=== PATIENT | female | born 1960 | race Caucasian/White ===

== ENCOUNTER 2018-06-29 09:55 | Emergency (ER) | payer MEDICAID ==
[~2018-06-29] VITALS: Ht 157.5 cm; Wt 95.5 kg
[2018-06-29 11:13] LABS: BASOPHILS # (AUTO) 0.1 X10'3 (0-0.2); BASOPHILS % (AUTO) 0.9 % (0-1); EOSINOPHILS % (AUTO) 0 % (0-6); HEMATOCRIT 44.4 % (35.0-45.0); LYMPHOCYTES % (AUTO) 36.8 % (21-51); MEAN CORPUSCULAR HEMOGLOBIN 30.2 PG (27.0-31.0); MEAN CORPUSCULAR HGB CONC 33.8 g/dL (33.0-36.5); MEAN CORPUSCULAR VOLUME 89.2 FL (78-98); MEAN PLATELET VOLUME 8.6 FL (7.4-10.4); MONOCYTES # (AUTO) 0.5 X10'3 (0-0.9); MONOCYTES % (AUTO) 6.5 % (2-12); NEUTROPHILS # (AUTO) 4.6 X10'3 (1.8-7.7); NEUTROPHILS % (AUTO) 55.8 % (42-75); PLATELET COUNT 353 X10'3 (140-440); RED BLOOD COUNT 4.97 X10'6 (4.20-5.60); RED CELL DISTRIBUTION WIDTH 14.7 % (11.5-14.5); WHITE BLOOD COUNT 8.2 X10'3 (4.5-11.0)
[2018-06-29 11:26] LABS: ALANINE AMINOTRANSFERASE 17 U/L (12-78); ALBUMIN 3.8 G/DL (3.4-5.0); ALKALINE PHOSPHATASE 77 IU/L (46-116); ANION GAP 7 (8-16); ASPARTATE AMINO TRANSFERASE 15 U/L (10-37); BILIRUBIN,TOTAL 0.2 MG/DL (0.1-1.0); BLOOD UREA NITROGEN 22 MG/DL (7-18); BUN/CREATININE RATIO 28.6 (6.6-38.0); CALCIUM 9.7 MG/DL (8.5-10.1); CHLORIDE 105 MMOL/L (99-107); CREATININE 0.77 MG/DL (0.40-0.90); GLUCOSE 182 MG/DL (70-104); POTASSIUM 3.7 MMOL/L (3.5-5.1); SODIUM 142 MMOL/L (135-145); TOTAL CARBON DIOXIDE 29.7 MMOL/L (24-32); TOTAL PROTEIN 7.5 G/DL (6.4-8.2); eGFR 76 ML/MIN
[2018-06-29] MEDS ORDERED: AZIT-63 PO (12:07)
[2018-06-29] MEDS ORDERED: PRED20TA PO (12:07)
[2018-06-29 12:28] VITALS: BP 136/79
== END 2018-06-29 12:35 | disposition home or self-care (01) ==
LOC: ER 09:56
DX: J22 Unspecified acute lower respiratory infection (principal); J44.9 Chronic obstructive pulmonary disease, unspecified; F17.200 Nicotine dependence, unspecified, uncomplicated; Z88.6 Allergy status to analgesic agent
CPT/HCPCS: 36415; 71046; 80053; 83605; 85025; 87040; 99284

== ENCOUNTER 2024-10-26 10:25 | Outpatient (CLI) | payer MEDICARE, MEDICAID ==
[2024-10-26 11:45] VITALS: PULSE 87; RESP 16; O2SAT 92
--- NOTE | 2024-10-27 15:21 | PROCEDURE NOTE - Respiratory ---
Procedure Note-Respiratory Providers to CC Copies To 1: KATHARINA BATES MD Procedure Name: This is a spirometry study dated October 26, 2024. Spirometry measurements: Both the forced vital capacity and the FEV1 measurements show significant reduction. The FEV1 ratio is also reduced. All of the measured flow rates show substantial reduction. Bronchodilator was not administered as part of the study. Conclusion: This study documents severe abnormality. There is evidence for obstructive ventilatory defect in the severe category. These findings are consistent with the patient's diagnosis of smoking-related COPD. It is strongly recommended that the patient abstain from cigarette smoking. Continued use of bronchodilator medication is recommended. We have no previous studies for comparison. Close pulmonary follow-up is recommended. ROSIE BAPTISTE MD Oct 27, 2024 15:21
== END 2024-10-26 23:59 | disposition home or self-care (01) ==
LOC: RT 10:25
PROVIDERS: ATTEND Family Medicine
DX: J44.9 Chronic obstructive pulmonary disease, unspecified (principal); F17.210 Nicotine dependence, cigarettes, uncomplicated
CPT/HCPCS: 94010; 94760